=== PATIENT | male | born 1950 | race Two or more races ===

== ENCOUNTER 2020-07-20 20:33 | Inpatient (IN) | payer MEDICARE, OTHER ==
[2020-07-19 23:25] VITALS: BP 153/153
[~2020-07-20] VITALS: Ht 170.2 cm; Wt 52.2 kg
[2020-07-20] MEDS ORDERED: FUROSEMIDE 40 MG/4 ML VIAL ONE (20:41)
--- NOTE | 2020-07-20 20:56 | NUR ---
MICHAEL FROM HOME TO ER BED 12. AAOX4. BREATHING EVEN, UNLABORED BUT WHEEZING. PT SATTING AT 97% ON RA. BROUGHT IN FOR BILAT LOWER LEG EDEMA AND PAIN ON HIS R LEG. PT IS NOTED WITH R LEG MORE SWOLLEN THAN THE L LEG. PEDAL PULSE APPRECIATED. WAS AT THE BEDSIDE FOR EVAL. ORDES RCEIVED, NOTED AND CARRIED OUT. IV LINER ESTABLISHED ON THE R FA 18G, BLOOD DRAWN AND GIVEN TO BENEFITS ADMINISTRATOR AT BEDSIDE. PT ON MONITOR.
[2020-07-20] MEDS ORDERED: FUROSEMIDE 40 MG/4 ML VIAL IV ONE (21:00)
[2020-07-20 21:17] LABS: BASOPHILS % (AUTO) 0.3 % (0.0-2.0); EOSINOPHILS % (AUTO) 1.1 % (0.0-6.0); HEMATOCRIT 26 % (39-51); HEMOGLOBIN 8.9 g/dL (13.5-17.5); LYMPHOCYTES # (AUTO) 1.1 /CMM (0.8-4.8); LYMPHOCYTES % (AUTO) 12.7 % (20.0-44.0); MEAN CORPUSCULAR HGB CONC 34 g/dl (31.0-36.0); MEAN CORPUSCULAR VOLUME 99 fL (80-96); MONOCYTES # (AUTO) 0.9 /CMM (0.1-1.30); MONOCYTES % (AUTO) 9.4 % (2.0-12.0); NEUTROPHILS # (AUTO) 6.9 /CMM (1.8-8.9); NEUTROPHILS % (AUTO) 76.5 % (43.0-81.0); PLATELET COUNT (AUTO) 327 /CMM (150-450); RED BLOOD CELL COUNT(AUTO) 2.67 MIL/uL (4.5-6.0)
--- NOTE | 2020-07-20 21:20 | NUR ---
US AT BEDSIDE
[2020-07-20 21:22] LABS: ALBUMIN 2.9 g/dL (3.4-5.0); BILIRUBIN,DIRECT 0.1 mg/dL (0.0-0.2); BILIRUBIN,TOTAL 0.4 mg/dL (0.2-1.0); CALCIUM, SERUM 9.5 mg/dL (8.5-10.1); CREATININE 5.5 mg/dL (0.6-1.3); POTASSIUM 3.8 mmol/L (3.5-5.1); TOTAL PROTEIN, SERUM 6.1 g/dL (6.4-8.2)
--- NOTE | 2020-07-20 21:48 | NUR ---
called [facility] for panel admission. waiting for congressional aide nohemi call back
--- NOTE | 2020-07-20 21:54 | NUR ---
called lab for covid swab
[2020-07-20] MEDS ORDERED: ONDANSETRON HCL/PF 4 MG/2 ML VIAL IVP PRN (22:00)
[2020-07-20] MEDS ORDERED: ASPIRIN 325 MG TABLET PO ONE (22:00)
[2020-07-20] MEDS ORDERED: ACETAMINOPHEN 325 MG TABLET PO PRN (22:00)
[2020-07-20] MEDS ORDERED: DOCUSATE SODIUM 100 MG CAPSULE PO PRN (22:00)
[2020-07-20] MEDS ORDERED: ASPIRIN 325 MG TABLET ONE (22:02)
--- NOTE | 2020-07-20 22:05 | NUR ---
COVID SWAB DONE AND SENT TO LAB
--- NOTE | 2020-07-20 22:56 | NUR ---
called rn sup for tele bed
--- NOTE | 2020-07-20 23:12 | NUR ---
REPORT GIVEN TO SONIA MARTÍNEZ FOR BRADEN
--- NOTE | 2020-07-20 23:30 | NUR ---
PT TRANSPORTED TO [facility] WITH EMT AND RN AT BEDSIDE W/ ACLS PROTOCOL. NAD DURING TRANSPORT.
--- NOTE | 2020-07-21 00:25 | NUR ---
RN NOTES PT ARRIVED TO UNIT VIA [facility] ALERT AND ORIENTED X 3-4.NO PAIN OR DISCOMFORT VISIBLE OR REPORTED. NO RESPIRATORY DISTRESS NOTED OR REPORTED. PT ON ROOM AIR TOLERATING WELL. PT HAS BILATERAL LOWER LEG SWELLING WITH NON PITTING EDEMA NOTED RIGHT LEG IS MORE SWOLLEN THAN THE LEFT. BILATERAL PEDAL PULSE APPRECIATED.IV ACCESS ON THE RIGHT FOREARM SALINE LOCKED NO SWELLING OR PAIN AT SITE.L ARM AV SHUNT PRESENT.ALL NURSING NEEDS ADDRESSED AT THIS TIME. CALL LIGHT WITH REACH. SAFETY PRECAUTIONS FOLLOWED. PT ORIENTED TO UNIT. WILL CONTINUE TO MONITOR.
[2020-07-21 04:00] VITALS: BP_SYST 141
--- NOTE | 2020-07-21 05:17 | NUR ---
RN NOTES PT HAS BEEN ADVISED TO KEEP LEGS ELEVATED BUT CONTINUES TO HANG THE RIGHT LEG OF THE BED. WILL CONTINUE TO MONITOR.
[2020-07-21 05:45] LABS: BASOPHILS # (AUTO) 0.1 /CMM (0.0-0.2); BASOPHILS % (AUTO) 0.4 % (0.0-2.0); EOSINOPHILS % (AUTO) 1.6 % (0.0-6.0); HEMATOCRIT 26 % (39-51); HEMOGLOBIN 8.9 g/dL (13.5-17.5); LYMPHOCYTES # (AUTO) 1.3 /CMM (0.8-4.8); LYMPHOCYTES % (AUTO) 9.5 % (20.0-44.0); MEAN CORPUSCULAR HGB CONC 34 g/dl (31.0-36.0); MEAN CORPUSCULAR VOLUME 98 fL (80-96); MONOCYTES # (AUTO) 0.9 /CMM (0.1-1.30); MONOCYTES % (AUTO) 6.5 % (2.0-12.0); NEUTROPHILS # (AUTO) 11.1 /CMM (1.8-8.9); PLATELET COUNT (AUTO) 346 /CMM (150-450); RED BLOOD CELL COUNT(AUTO) 2.69 MIL/uL (4.5-6.0); WHITE BLOOD COUNT (AUTO) 13.6 K/uL (4.3-11.0)
[2020-07-21 06:09] LABS: ALBUMIN 2.8 g/dL (3.4-5.0); BILIRUBIN,TOTAL 0.4 mg/dL (0.2-1.0); CALCIUM, SERUM 9.4 mg/dL (8.5-10.1); MAGNESIUM 2.3 mg/dL (1.8-2.4); PHOSPHORUS 6.9 mg/dL (2.5-4.9); POTASSIUM 3.7 mmol/L (3.5-5.1); TOTAL PROTEIN, SERUM 5.7 g/dL (6.4-8.2)
[2020-07-21 06:15] LABS: THYROID STIMULATING HORMONE 0.232 uIU/mL (0.358-3.74)
--- NOTE | 2020-07-21 06:41 | NUR ---
RN NOTES PT ALERT AND ORIENTED X 3-4. NO PAIN OR DISCOMFORT VISIBLE OR REPORTED. NO RESPIRATORY DISTRESS NOTED OR REPORTED. PT ON ROOM AIR TOLERATING WELL. PT HAS BILATERAL LOWER LEG SWELLING WITH NON PITTING EDEMA NOTED RIGHT LEG IS MORE SWOLLEN THAN THE LEFT. BILATERAL PEDAL PULSE APPRECIATED.IV ACCESS ON THE RIGHT FOREARM SALINE LOCKED NO SWELLING OR PAIN AT SITE.L ARM DIALYSIS ACCESS.ALL NURSING NEEDS ADDRESSED AT THIS TIME.CALL LIGHT WITHIN REACH. REMINDED PT TO KEEP LEGS ELEVATED BTU STILL CONTINUES TO DANGLE RIGHT LEG OFF THE BED. SAFETY PRECAUTIONS FOLLOWED.. WILL ENDORSE CARE TOD DAY SHIFT.
--- NOTE | 2020-07-21 07:55 | NUR ---
TRANSACTIONAL ATTORNEY OPENING NOTE PATIENT IS IN BED RESTING. PATIENT IS IN NO ACUTE DISTRESS. PATIENT IS ON ROOM AIR, TOLERATING WELL. NO SOB NOTED. PATIENT IS ON FLUID RESTRICTION 1.5L PATIENT HAS BILATERAL EXTREMITY EDEMA. PATIENT IS ON TELE MONITOR READING SR 92. SAFETY PRECAUTIONS ARE IN PLACE, BED IN THE LOWEST POSITION, WITH SIDE RAILS ON, CALL LIGHT WITHIN REACH. WILL CONTINUE TO MONITOR PATIENT CLOSELY THROUGH OUT THE SHIFT.
[2020-07-21 08:00] VITALS: BP 140/66
[2020-07-21] MEDS: HEPARIN SODIUM, PORCINE 5000 UNITS/1 ML VIAL SQ SCH ×2 (09:42→18:55)
[2020-07-21] MEDS: ASPIRIN 81 MG TAB.CHEW PO SCH (09:43)
[2020-07-21] MEDS ORDERED: FURO80TA85 PO (10:20)
[2020-07-21] MEDS ORDERED: AMLO-213 PO (10:20)
[2020-07-21] MEDS ORDERED: GABA-532 PO (10:20)
[2020-07-21] MEDS ORDERED: ATOR40TA PO (10:20)
[2020-07-21] MEDS ORDERED: INSU100I4 SQ (10:20)
[2020-07-21] MEDS ORDERED: LISI30TA4 PO (10:20)
[2020-07-21] MEDS ORDERED: CARV12.52 PO (10:20)
[2020-07-21] MEDS ORDERED: HYDR-4076 PO (10:20)
[2020-07-21] MEDS ORDERED: SERT-439 PO (10:20)
[2020-07-21] MEDS ORDERED: PYRI50TA12 PO (10:20)
[2020-07-21] MEDS ORDERED: SUCR500T PO (10:20)
[2020-07-21] MEDS ORDERED: ASPI-1420 PO (10:20)
[2020-07-21] MEDS ORDERED: INSU100V7 SQ (10:20)
[2020-07-21] MEDS ORDERED: PANT40TA49 PO (10:20)
[2020-07-21] MEDS ORDERED: ZOLP10TA2 PO (10:20)
[2020-07-21 12:00] VITALS: BP 136/60
[2020-07-21 16:00] VITALS: BP 137/60
--- NOTE | 2020-07-21 17:51 | NUR ---
NEUROLOGY HOSPITALIST NOTE PATIENT MEDICATION RECONCILIATION IS NOT DONE BY DR. GERMÁN KAUFMAN. MD IS AWARE. PATIENTS BLOOD SUGAR IS 168.
--- NOTE | 2020-07-21 19:54 | NUR ---
FICTION AND NONFICTION AUTHOR CLOSING NOTE PATIENT IS IN BED RESTING. PATIENT IS IN NO ACUTE DISTRESS. PATIENT IS ON ROOM AIR, TOLERATING WELL. NO SOB NOTED. PATIENT IS ON FLUID RESTRICTION 1.5L PATIENT HAS BILATERAL EXTREMITY EDEMA. PATIENT IS ON TELE MONITOR READING SR 78. PATIENTS MEDICATION RECONCILIATION IS NOT DONE BY DR GERMÁN KAUFMAN. SAFETY PRECAUTIONS ARE IN PLACE, BED IN THE LOWEST POSITION, WITH SIDE RAILS ON, CALL LIGHT WITHIN REACH. ENDORSE PATIENT TO SEXUAL HEALTH PHYSICIAN NURSE FOR BRADEN.
[2020-07-21 20:00] VITALS: BP 118/55
--- NOTE | 2020-07-21 20:00 | NUR ---
INTRAVENOUS THERAPY NURSE NOTE: PATIENT RESTING IN BED, NO ACUTE DISTRESS NOTED. BREATHING EVEN AND UNLABORED, NO SOB NOTED. PATIENT CURRENTLY ON DIALYSIS AT THIS TIME. BED LOCKED AND IN LOWEST POSITION, CALL LIGHT IN REACH. WILL CONTINUE TO MONITOR THROUGHOUT SHIFT.
[2020-07-22] VITALS: BP 124/49
--- NOTE | 2020-07-22 01:00 | NUR ---
BUTTING SAW OPERATOR NOTE: PATIENT COMPLAINS OF MILD PAIN TO BOTH FEET 3/10, TYLENOL 325MG 2 TABS ORAL GIVEN PER MD ORDER. WILL CONTINUE TO MONITOR THROUGHOUT SHIFT.
[2020-07-22 04:00] VITALS: BP 127/54
--- NOTE | 2020-07-22 06:20 | NUR ---
ANALYTICS SPECIALIST NOTE: PATIENT RESTING IN BED, NO ACUTE DISTRESS NOTED. BREATHING EVEN AND UNLABORED, NO SOB NOTED. HD TO RAY IN PLACE. IV TO RFA IN PLACE. BED LOCKED AND IN LOWEST POSITION, CALL LIGHT IN REACH. WILL ENDORSE TO DAY NURSE TO CONTINUE WITH PLAN OF CARE.
[2020-07-22 08:00] VITALS: BP 141/64
[2020-07-22] MEDS: ASPIRIN 81 MG TAB.CHEW PO SCH (08:49)
[2020-07-22] MEDS: HEPARIN SODIUM, PORCINE 5000 UNITS/1 ML VIAL SQ SCH ×2 (08:52→17:26)
--- NOTE | 2020-07-22 09:29 | NUR ---
MS RN OPENING NOTES PATIENT IN BED RESTING , NO ACUTE DISTRESS, no c/o pain or distress. No SOB noted. Patient on fluid restriction. Safety precautions in place, bed in lowest position, side rails up x2. Call light within easy reach and answered promptly and all needs attended to.
[2020-07-22 11:44] LABS: FERRITIN 779 ng/mL (8-388)
[2020-07-22 11:55] LABS: IRON, SERUM 43 ug/dl (50-175); TOTAL IRON BINDING CAPACITY 153 ug/dl (250-450)
[2020-07-22] MEDS ORDERED: DEXTROSE 50%-WATER 50 ML DISP.SYRIN IV PRN (13:30)
[2020-07-22] MEDS ORDERED: HOME MED MISCELLANEOUS XX SCH (13:30)
[2020-07-22] MEDS ORDERED: ZOLPIDEM TARTRATE 10 MG TABLET PO PRN (13:30)
[2020-07-22] MEDS ORDERED: ASPIRIN EC 81 MG TABLET.DR PO SCH (13:30)
--- NOTE | 2020-07-22 13:32 | NUR ---
RN MS NOTES PT SEEN AND EXAMINED BY DR. GUERRERO, ORDERS GIVEN.
[2020-07-22] MEDS: AMLODIPINE BESYLATE 10 MG TABLET PO SCH (14:03)
[2020-07-22 16:00] VITALS: BP 146/72
[2020-07-22] MEDS ORDERED: FUROSEMIDE 80 MG TABLET PO SCH (17:00)
[2020-07-22] MEDS: hydrALAZINE HCL 25 MG TABLET PO SCH (17:25)
[2020-07-22] MEDS: FUROSEMIDE 40 MG TABLET PO SCH (17:25)
[2020-07-22] MEDS: GABAPENTIN 100 MG CAPSULE PO SCH (17:25)
[2020-07-22] MEDS: CARVEDILOL 12.5 MG TABLET PO SCH (17:25)
[2020-07-22] MEDS: INSULIN REGULAR, HUMAN 100 UNIT/ML 3 ML VIAL SQ PRN ×2 (18:23→22:52)
[2020-07-22] MEDS: BLOOD SUGAR DIAGNOSTIC 1 EACH STRIP IN SCH ×2 (18:31→22:35)
--- NOTE | 2020-07-22 18:37 | NUR ---
MS SONIA OPENING NOTES PATIENT IN BED RESTING , NO ACUTE DISTRESS, no c/o pain or distress. No SOB noted. Patient on fluid restriction. Safety precautions in place, bed in lowest position, side rails up x2. Call light within easy reach and answered promptly and all needs attended to. Addendum: 07/22/20 at 1840 by TIFFANI ROSE RN Closing
--- NOTE | 2020-07-22 19:42 | NUR ---
MS RN OPENING NOTES PATIENT A/OX3; SITTING IN BED COMFORTABLY. ON ROOM AIR; TOLERATING WELL WITH NO SOB. DENIES PAIN OR DISCOMFORT AT THIS TIME. S/L #18G TO RFA; PATENT AND INTACT. AV SHUNT TO L ARM; INTACT; DRESSING C/D/I. ALL SAFETY MEASURES IN PLACE; BED IN LOWEST LOCKED POSITION; SIDERAILS UPX2; CALL LIGHT WITHIN REACH. PATIENT MEDICALLY STABLE AT THIS TIME.
[2020-07-22 20:00] VITALS: BP 102/47
--- NOTE | 2020-07-22 20:30 | NUR ---
MS RN NOTES - HD SUPERVISOR SPEECH STARTED HD ON PATIENT. AV SHUNT TO LEFT ARM USED FOR HD. SUPERVISOR SPEECH BY BEDSIDE. WILL CONTINUE TO MONITOR FOR ANY A/R.
--- NOTE | 2020-07-23 00:30 | NUR ---
MS SCOTT NOTED PATIENT REMAINED STABLE DURING DIALYSIS. HD 1L TAKEN OUT. NO N/V/D NOTED. V/S WNL. L AV SHUNT HD SITE C/D/I.
[2020-07-23] MEDS: INSULIN REGULAR, HUMAN 100 UNIT/ML 3 ML VIAL SQ PRN (06:35)
[2020-07-23 06:36] LABS: BASOPHILS # (AUTO) 0.1 /CMM (0.0-0.2); BASOPHILS % (AUTO) 0.9 % (0.0-2.0); EOSINOPHILS % (AUTO) 1.7 % (0.0-6.0); HEMATOCRIT 22 % (39-51); HEMOGLOBIN 7.8 g/dL (13.5-17.5); LYMPHOCYTES # (AUTO) 1.2 /CMM (0.8-4.8); LYMPHOCYTES % (AUTO) 12.8 % (20.0-44.0); MEAN CORPUSCULAR HGB CONC 35 g/dl (31.0-36.0); MEAN CORPUSCULAR VOLUME 97 fL (80-96); MONOCYTES # (AUTO) 0.8 /CMM (0.1-1.30); MONOCYTES % (AUTO) 8.7 % (2.0-12.0); NEUTROPHILS # (AUTO) 6.9 /CMM (1.8-8.9); NEUTROPHILS % (AUTO) 75.9 % (43.0-81.0); PLATELET COUNT (AUTO) 354 /CMM (150-450); RED BLOOD CELL COUNT(AUTO) 2.31 MIL/uL (4.5-6.0); WHITE BLOOD COUNT (AUTO) 9.1 K/uL (4.3-11.0)
[2020-07-23 07:03] LABS: CALCIUM, SERUM 9.1 mg/dL (8.5-10.1); CREATININE 3.9 mg/dL (0.6-1.3); MAGNESIUM 2.2 mg/dL (1.8-2.4); PHOSPHORUS 5.1 mg/dL (2.5-4.9); POTASSIUM 3.9 mmol/L (3.5-5.1)
[2020-07-23] MEDS ORDERED: PANTOPRAZOLE 40 MG TABLET.DR PO SCH (07:30)
--- NOTE | 2020-07-23 07:30 | NUR ---
RN MS NOTES PT AWAKE, ALERT AND ORIENTED, NO COMPLAINT AT THIS TIME, RESPIRATIONS NORMAL, CALL LIGHT WITHIN REACH, ENCOURAGED TO ELEVATE RIGHT LEG TO PROMOTE CIRCULATION, ASSISTED TO BATHROOM NEEDED, NEEDS ATTENDED.
[2020-07-23] MEDS: BLOOD SUGAR DIAGNOSTIC 1 EACH STRIP IN SCH ×2 (07:38→12:05)
--- NOTE | 2020-07-23 07:56 | NUR ---
MS RN CLOSING NOTES PATIENT A/OX3; SITTING IN BED COMFORTABLY. ON ROOM AIR; TOLERATING WELL WITH NO SOB. DENIES PAIN OR DISCOMFORT AT THIS TIME. S/L #18G TO RFA; PATENT AND INTACT. AV SHUNT TO L ARM; INTACT; DRESSING C/D/I. ALL SAFETY MEASURES IN PLACE; BED IN LOWEST LOCKED POSITION; SIDERAILS UPX2; CALL LIGHT WITHIN REACH. PATIENT MEDICALLY STABLE AT THIS TIME. ENDORSE BRADEN TO ONCOMING MORNING RN.
[2020-07-23 08:00] VITALS: BP 138/57
[2020-07-23] MEDS: ASPIRIN 81 MG TAB.CHEW PO SCH (08:37)
[2020-07-23] MEDS: GABAPENTIN 100 MG CAPSULE PO SCH (08:38)
[2020-07-23] MEDS: FUROSEMIDE 40 MG TABLET PO SCH ×2 (08:38→17:00)
[2020-07-23] MEDS: CARVEDILOL 12.5 MG TABLET PO SCH ×2 (08:39→17:00)
[2020-07-23] MEDS: AMLODIPINE BESYLATE 10 MG TABLET PO SCH (08:39)
[2020-07-23] MEDS: hydrALAZINE HCL 25 MG TABLET PO SCH ×3 (08:46→17:00)
[2020-07-23] MEDS: HEPARIN SODIUM, PORCINE 5000 UNITS/1 ML VIAL SQ SCH ×2 (08:47→17:00)
[2020-07-23] MEDS ORDERED: PYRIDOXINE HCL 50 MG TABLET PO SCH (09:00)
[2020-07-23] MEDS ORDERED: ATORVASTATIN 40 MG TABLET PO SCH (09:00)
[2020-07-23] MEDS ORDERED: SERTRALINE HCL 50 MG TABLET PO SCH (09:00)
[2020-07-23] MEDS ORDERED: LISINOPRIL (20MG) 20 MG TABLET PO SCH (09:00)
[2020-07-23 16:00] VITALS: BP 114/70
[2020-07-23 17:00] VITALS: BP 98/51
--- NOTE | 2020-07-23 18:04 | NUR ---
RN MS NOTES PT AWAKE, ALERT AND ORIENTED, NO COMPLAINT OF PAIN OR ANY DISCOMFORT, RESPIRATIONS NORMAL AND NON LABORED, PT SEEN BY DR. GUERRERO, DISCHARGE AND FOLLOW UP INSTRUCTIONS DISCUSSED BY MD TO PT'S SON SHARMIN, VERBALIZED UNDERSTANDING, BELONGINGS ACCOUNTED FOR, APPOINTMENT ARRANGED BY CM WITH THE [facility], PT AND SON INFORMED, ASSISTED TO HOSPITAL LOBBY VIA WHEELCHAIR, PICKED UP BY SON ERENDIRA AND , LEFT VIA PRIVATE CAR IN STABLE CONDITION.
== END 2020-07-23 17:51 | disposition home or self-care (01) | DRG 280 ==
LOC: ER 20:34 → TELE 23:02 → MED 07-22 09:01
PROVIDERS: ADMIT Registered Nurse; ATTEND Nurse Practitioner Acute Care
PROC: 5A1D70Z Performance of Urinary Filtration, Intermittent, Less than 6 Hours Per Day (ICD-10-PCS; principal; 2020-07-21)
DX: I13.2 Hypertensive heart and chronic kidney disease with heart failure and with stage 5 chronic kidney disease, or end stage renal disease (principal); N18.6 End stage renal disease; I21.A1 Myocardial infarction type 2; I50.33 Acute on chronic diastolic (congestive) heart failure; E44.0 Moderate protein-calorie malnutrition; R64 Cachexia; E11.22 Type 2 diabetes mellitus with diabetic chronic kidney disease; Z99.2 Dependence on renal dialysis; D63.1 Anemia in chronic kidney disease; I70.0 Atherosclerosis of aorta; N25.0 Renal osteodystrophy; I35.0 Nonrheumatic aortic (valve) stenosis
CPT/HCPCS: 36415; 71045-TC; 80048-TC; 80053-TC; 80061-TC; 80076-TC; 82728-TC; 82962-TC; 83540-TC; 83735-TC; 84100-TC; 84436-TC; 84443-TC; 84484-TC; 85025-TC; 86706; 87081-TC; 87340; 90935-TC; 93307-TC; 93970-TC; 97116-TC; 97530-TC; C9803; G0378; J1644; J1815; J1940